=== PATIENT | female | born 1975 | race African-American/Black ===

== ENCOUNTER 2016-09-02 13:54 | Emergency (ER) | payer OTHER ==
[2016-09-02 14:12] VITALS: BP 118/85; PULSE 82; TEMP 98.3; BMI 32.5
--- NOTE | 2016-09-02 14:46 | PDOC ---
History of Present Illness - General Chief Complaint: Sore Throat Stated Complaint: COUGH SOB BODY ACHE Time Seen by Provider: 09/02/16 14:25 History Source: Patient - History of Present Illness Timing/Duration: reports: other Associated Symptoms: reports: cough, fever/chills, shortness of breath. denies : earache, headache, nasal congestion, nasal drainage, sore throat, wheezing Past History - Past Medical History Allergies/Adverse Reactions: Allergies Allergy/AdvReac Type Severity Reaction Status Date / Time No Known Allergies Allergy Verified 09/02/16 14:13 Thyroid Disease: No - Psycho/Social/Smoking Cessation Hx Anxiety: No Suicidal Ideation: No Smoking History: Current every day smoker Have you smoked in the past 12 months: No Number of Cigarettes Smoked Daily: 20 Information on smoking cessation initiated: No Hx Alcohol Use: No Drug/Substance Use Hx: No Substance Use Type: None Review of Systems - Review of Systems Constitutional: Yes: Chills, Fever HEENTM: No: Ear Pain, Throat Pain Respiratory: Yes: Cough, Shortness of Breath. No: Wheezing *Physical Exam - Vital Signs Last Vital Signs Temp Pulse Resp BP Pulse Ox 98.3 F 82 18 118/85 100 09/02/16 14:09 09/02/16 14:09 09/02/16 14:09 09/02/16 14:09/02/16 14:09 - Physical Exam General Appearance: Yes: Appropriately Dressed. No: Apparent Distress HEENT: positive: Normal Voice Neck: positive: Supple. negative: Lymphadenopathy (R), Lymphadenopathy (L) Respiratory/Chest: positive: Lungs Clear, Normal Breath Sounds. negative: Respiratory Distress Cardiovascular: positive: Regular Rate, S1, S2 Integumentary: positive: Dry, Warm Neurologic: positive: Fully Oriented, Alert, Normal Mood/Affect ED Treatment Course - RADIOLOGY Radiology Studies Ordered: Category Date Time Status CHEST PA & LAT [RAD] Stat Radiology 09/02/16 14:41 Ordered Medical Decision Making - Medical Decision Making 09/02/16 14:41 41-year-old female history of depression smoker, here with productive cough with possible shortness of breath and subjective fever x several days. Denies sore throat, ear pain or body aches. No sick contacts. Patient well-appearing and stable with unremarkable exam. Most likely viral URI. Will get x-ray given tobacco history 09/02/16 14:47 09/02/16 15:57 CXR neg as per radiology. Pt stable for discharge 09/02/16 15:58 *DC/Admit/Observation/Transfer Diagnosis at time of Disposition: URI (upper respiratory infection) Qualifiers: URI type: unspecified viral URI Qualified Code(s): J06.9 - Acute upper respiratory infection, unspecified; B97.89 - Other viral agents as the cause of diseases classified elsewhere - Discharge Dispostion Disposition: HOME Condition at time of disposition: Good - Patient Instructions Printed Discharge Instructions: DI for Viral Upper Respiratory Infection -- Adult, How to Quit Smoking
== END 2016-09-02 16:08 | disposition home or self-care (01) ==
LOC: JERFT 13:54
DX: J06.9 Acute upper respiratory infection, unspecified (principal); B97.89 Other viral agents as the cause of diseases classified elsewhere
CPT/HCPCS: 71020-TC; 84703; 99281-25

== ENCOUNTER 2016-12-14 08:47 | Emergency (ER) | payer OTHER ==
[2016-12-14 09:09] VITALS: BP 125/64; PULSE 91; TEMP 98.8; BMI 31.7
[2016-12-14] MEDS ORDERED: IBUPROFEN 600 MG TABLET (FP) PO ONE ×2 (09:24→09:27)
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
== END 2016-12-14 12:21 | disposition home or self-care (01) ==
LOC: JER 08:47
DX: S13.4XXA Sprain of ligaments of cervical spine, initial encounter (principal); S50.02XA Contusion of left elbow, initial encounter; S90.31XA Contusion of right foot, initial encounter; V43.52XA Car driver injured in collision with other type car in traffic accident, initial encounter; Y93.89 Activity, other specified; Y92.410 Unspecified street and highway as the place of occurrence of the external cause; S09.90XA Unspecified injury of head, initial encounter; F17.210 Nicotine dependence, cigarettes, uncomplicated
CPT/HCPCS: 70450-TC; 71020-TC; 72125-TC; 73070-TC-LT; 73630-TC-RT; 99282-25